=== PATIENT | female | born 1980 | race African-American/Black ===

== ENCOUNTER 2018-05-06 14:29 | Emergency (ER) | payer OTHER, MEDICAID ==
[~2018-05-06] VITALS: Ht 170.2 cm; Wt 116.0 kg
[~2018-05-06 14:29] MED LIST: PREN-88
[2018-05-06] MEDS ORDERED: ONDANSETRON HCL 4MG/2ML INJ IV STA (15:54)
[2018-05-06] MEDS ORDERED: KETOROLAC 30MG/ML VIAL IV STA (15:54)
[2018-05-06] MEDS ORDERED: SODIUM CHLORIDE 0.9% 1,000 ML IV ONE (15:54)
[2018-05-06 16:03] LABS: CLARITY URINE CLEAR (CLEAR); COLOR URINE YELLOW (YELLOW); KETONES URINE NEGATIVE (NEGATIVE); LEUKOCYTE ESTERASE URINE NEGATIVE (NEGATIVE); NITRITE URINE NEGATIVE (NEGATIVE); OCCULT BLOOD URINE TRACE (NEGATIVE); PROTEIN URINE NEGATIVE (NEGATIVE); SPECIFIC GRAVITY URINE 1.008 (1.005-1.030); UROBILINOGEN URINE 0.2 E.U./dL (0.2-1.0)
[2018-05-06 16:20] LABS: *AMPHETAMINES SCREEN URINE NEGATIVE (NEGATIVE); *BARBITURATES SCREEN URINE NEGATIVE (NEGATIVE); *BENZODIAZEPINES SCREEN URINE NEGATIVE (NEGATIVE); *COCAINE SCREEN URINE NEGATIVE (NEGATIVE)
[2018-05-06 16:21] LABS: CANNABINOID URINE SCREEN NEGATIVE (NEGATIVE); OPIATES URINE SCREEN NEGATIVE (NEGATIVE); PHENCYCLIDINE URINE SCREEN NEGATIVE (NEGATIVE)
[2018-05-06 16:23] LABS: METHADONE URINE SCREEN NEGATIVE (NEGATIVE)
[2018-05-06 16:50] LABS: BASOPHILS % 0.5 % (0.0-2.0); HEMATOCRIT. 40.3 % (36.0-48.0); HEMOGLOBIN. 13.5 g/dL (12.0-16.0); LYMPHOCYTES % 37.5 % (20.0-50.0); MEAN CORPUSCULAR HEMOGLOBIN 30.1 pg (28.0-32.0); MEAN CORPUSCULAR VOLUME 90.3 fL (81.0-99.0); MEAN PLATELET VOLUME 9.3 fl (7.4-10.4); MONOCYTES % 4.7 % (2.0-8.0); NEUTROPHILS % 56.3 % (40.0-76.0); PLATELET 261 x1000/uL (130-400); RED BLOOD CELL COUNT 4.47 mill/uL (4.2-5.4); RED CELL DISTRIBUTION WIDTH 13.3 % (11.6-14.6)
[2018-05-06 16:55] LABS: CHLORIDE 99 mEq/L (98-107)
[2018-05-06 17:10] VITALS: BP 110/68
[2018-05-06] MEDS ORDERED: ONDANSETRON HCL 4MG/2ML INJ IV ONE (17:45)
== END 2018-05-06 18:15 | disposition home or self-care (01) ==
LOC: ER 14:29
DX: G43.909 Migraine, unspecified, not intractable, without status migrainosus (principal); B34.9 Viral infection, unspecified; F17.200 Nicotine dependence, unspecified, uncomplicated; Z98.84 Bariatric surgery status
CPT/HCPCS: 36415; 80053; 80305; 81003; 81025; 85025; 85610; 96374; 96375; 99284; J1885; J2405; J7030; Z7610

== ENCOUNTER 2019-06-25 00:48 | Emergency (ER) | payer MEDICAID ==
[~2019-06-25] VITALS: Ht 167.6 cm; Wt 90.0 kg
[2019-06-25 01:37] VITALS: BP 103/59
[2019-06-25] MEDS: GUAIFENESIN/CODEINE 100-10MG/5ML UDC PO NR ×2 (02:45→03:43)
[2019-06-25] MEDS ORDERED: GUAIFENESIN/CODEINE 200-20MG/10ML UDC PO ONE (02:45)
[2019-06-25] MEDS ORDERED: DEXAMETHASONE 4MG TABLET PO ONE (02:45)
[2019-06-25] MEDS ORDERED: IPRATROPIUM/ALBUTEROL 0.5-3(2.5)MG/3ML NEB HHN ONE (02:45)
== END 2019-06-25 03:30 | disposition home or self-care (01) ==
LOC: ER 00:48
DX: J40 Bronchitis, not specified as acute or chronic (principal); J30.9 Allergic rhinitis, unspecified; J32.9 Chronic sinusitis, unspecified; Z98.84 Bariatric surgery status
CPT/HCPCS: 71045; 94640; 99283; J7620; J8540; Z7610